=== PATIENT | male | born 1990 | race African-American/Black ===

== ENCOUNTER 2020-07-13 13:36 | Outpatient (CLI) | payer OTHER, SELFPAY | END 2020-07-13 13:37 | disposition home or self-care (01) | LOC: ANHAUDIO 13:40 | DX: H90.A21 Sensorineural hearing loss, unilateral, right ear, with restricted hearing on the contralateral side (principal) | CPT/HCPCS: 92557; 92567 ==

== ENCOUNTER 2020-09-21 15:02 | Outpatient (RCR) | payer OTHER, SELFPAY ==
--- NOTE | 2020-09-21 16:09 | PCAUD ---
Mr. Farley was a no show for two appointments for hearing aid fittings (08/29/2020 and 09/14/2020. The hearing aids can be reordered as warranted.
== END 2020-09-21 23:59 | disposition home or self-care (01) ==
LOC: ANHAUDIO 15:02
DX: Z46.1 Encounter for fitting and adjustment of hearing aid (principal)
CPT/HCPCS: 99199

== ENCOUNTER 2023-05-02 14:25 | Emergency (ER) | payer OTHER, SELFPAY ==
[2023-05-02 14:42] VITALS: BP 99/62; PULSE 58; RESP 16; TEMP 36.8; O2SAT 100
--- NOTE | 2023-05-02 15:18 | ED.MALEGU ---
HPI - Male Genitourinary General Chief complaint: Urogenital-Male Stated complaint: STD exposure Time Seen by Provider: 05/02/23 15:18 Source: patient and RN notes reviewed Mode of arrival: ambulatory Limitations: no limitations History of Present Illness HPI Narrative: 33-year-old male presented for complaint of urethral discharge worsening over the past few days. States the drainage is clear and occurs throughout the day, also reports itching.. Endorses occasional dysuria. He endorses similar episodes intermittently for the past few months. He has been tested and treated several times this year, but states the tests have always come back negative for an STD. He endorses a new sexual partner since the last test/treatment. He denies known exposure. Denies skin rash, blisters, hematuria, or urinary frequency. Related Data Home Medications Medication Instructions Recorded Confirmed No Home Medications 05/02/23 05/02/23 Allergies Allergy/AdvReac Type Severity Reaction Status Date / Time lithium AdvReac Unknown Verified 05/02/23 14:51 Review of Systems Review of Systems: CONSTITUTIONAL: Denies body aches, fever, chills, or sweats. CARDIOVASCULAR: Denies chest pain, palpitations, or edema. RESPIRATORY: Denies cough or dyspnea. GASTROINTESTINAL: Denies abdominal pain, nausea, vomiting, or diarrhea. GENITOURINARY: Reports dysuria,urethral discharge denies frequency, urgency, hematuria, flank pain SKIN: Denies rash, itching, or wounds. MUSCULOSKELETAL: Denies back pain or myalgia. [facility] Past Medical History Medical History (Updated 05/02/23 @ 15:35 by Leandra Evans, [place]) No pertinent past medical history Comments At time of signature, I have reviewed and agree with nursing past medical, surgical, social and family history unless otherwise noted. Please see nursing chart for further information. There is no relevant family history pertinent to the presenting complaint Exam Narrative: GENERAL: Well-appearing and in no acute distress. ENT: Mucous membranes pink and moist. NECK: Normal AROM. Supple. CHEST: No respiratory distress. Clear to auscultation. HEART: Regular rate and rhythm. ABDOMEN: Soft, nontender, nondistended, normal active bowel sounds. No CVA tenderness : No swelling, erythema, or lesions to penile shaft, no active urethral drainage or discharge; high heel builder María RN. SKIN: Warm, dry, no rash. NEURO: No focal deficits. Alert and oriented x3. Gait steady. PSYCH: Normal affect. Course Course Emergency Course: Patient is aware of diagnosis, understands and agrees to treatment plan. Anticipatory guidance given. Patient agrees to follow-up as directed and is aware of reasons to seek care at the emergency department. Portions of this record may have been created with voice recognition software Level of Care: Express Care Visit Vital Signs Vital signs: Vital Signs Temperature 98.2 F 05/02/23 14:42 Pulse Rate 58 L 05/02/23 14:42 Respiratory Rate 16 05/02/23 14:42 Blood Pressure 99/62 L 05/02/23 14:42 Pulse Oximetry 100 05/02/23 14:42 Oxygen Delivery Room Air 05/02/23 14:42 Temperature 98.2 F 05/02/23 14:42 Pulse Rate 58 L 05/02/23 14:42 Respiratory Rate 16 05/02/23 14:42 Blood Pressure 99/62 L 05/02/23 14:42 Pulse Oximetry 100 05/02/23 14:42 Oxygen Delivery Room Air 05/02/23 14:42 Reviewed MDM - Male Genitourinary MDM Narrative Medical decision making narrative: Patient presenting with concern for STD. Urine specimen collected for GC, chlamydia, trich. Informed Pt will be contacted w/ results when they become available if they are positive. Discussed with patient that it takes up to 7 days for results of cultures to be released and explained that we may treat empirically at this time. Declines treatment at this time and will return should tests be positive. I have instructed the patient to return to the ER at any time
== END 2023-05-02 15:42 | disposition home or self-care (01) ==
PROVIDERS: Emergency Provider Nurse Practitioner Family
DX: A74.9 Chlamydial infection, unspecified (principal)
CPT/HCPCS: 81003; 87491; 87591; 87661; 99213; G0463